=== PATIENT | male | born 1975 | race Caucasian/White ===

== ENCOUNTER 2018-09-16 18:48 | Emergency (ER) | payer SELFPAY ==
--- NOTE | 2018-09-16 18:56 | EDM.PDOC ---
ED HPI GENERAL MEDICAL PROBLEM - General Stated Complaint: THROWING UP Time Seen by Provider: 09/16/18 18:56 Source of Information: Reports: Patient History Limitations: Reports: No Limitations - History of Present Illness INITIAL COMMENTS - FREE TEXT/NARRATIVE: HISTORY AND PHYSICAL: History of present illness: Patient is a 43-year-old male who presents to the emergency room with complaints of nausea and vomiting x 3 since this afternoon. He states he had noticed dark colored emesis and was concerned it may have been blood. Prior did have some generalized abdominal pain which has now resolved. Patient denies any fever, chills, headache, change in vision, syncope or near syncope. Denies any chest pain, back pain, shortness of breath or cough. Denies any abdominal pain, diarrhea, constipation or dysuria. Has not noted any blood in urine or stool. He denies any recent alcohol use but is a daily smoker. Review of systems: As per history of present illness and below otherwise all systems reviewed and negative. Past medical history: As per history of present illness and as reviewed below otherwise noncontributory. Surgical history: As per history of present illness and as reviewed below otherwise noncontributory. Social history: See social history for further information Family history: As per history of present illness and as reviewed below otherwise noncontributory. Physical exam: General: Well-developed and well-nourished 43-year-old male. Alert and oriented. Nontoxic appearing and in no acute distress. HEENT: Atraumatic, normocephalic, pupils equal and reactive bilaterally, negative for conjunctival pallor or scleral icterus, mucous membranes moist, TMs normal bilaterally, throat clear, neck supple, nontender, trachea midline. No drooling or trismus noted. No meningeal signs. No hot potato voice noted. Lungs: Clear to auscultation, breath sounds equal bilaterally, chest nontender. Heart: S1S2, regular rate and rhythm without overt murmur Abdomen: Soft, nondistended, nontender. Negative for masses or hepatosplenomegaly. Negative for costovertebral tenderness. Pelvis: Stable nontender. Genitourinary: Deferred. Rectal: Deferred. Skin: Intact, warm, dry. No lesions or rashes noted. Extremities: Atraumatic, moves all extremities per self without difficulty or deficits, negative for cords or calf pain. Neurovascular unremarkable. Neuro: Awake, alert, oriented. Cranial nerves II through XII unremarkable. Cerebellum unremarkable. Motor and sensory unremarkable throughout. Exam nonfocal. Notes: Physical examination is within normal limits. He is agreeable to IV fluids and lab work. CT shows a 3 mm nonobstructing calculus lower pole left kidney. No obstructive uropathy and normal appendix. Otherwise CT is unremarkable. I did contact Dr Santos , general surgeon, about this case. We'll place him on Carafate and omeprazole. He states he'll see the patient on Wednesday. I did discuss this conversation along with diagnostics with the patient. Supportive care measures were reviewed and discussed. Voices understanding and is agreeable to plan of care. Denies any further questions or concerns at this time. Diagnostics: CBC, CMP, UA and abdominal lipase Therapeutics: IV fluid, Zofran Prescription: Omeprozole Protonix Impression: Gastritis Plan: 1. Prescription is available at [place] pharmacy. Please start these medications right away. 2. Avoid any irritating products such as tobacco or alcohol as we discussed. 3. Call Dr. Santos's office Wednesday morning at 0800am to set up an appointment for that day. Informed the nurse that you had spoke with Dr. Licona will urine the emergency room and he will see you on Wednesday. 4. Return to the ED as needed and as discussed. Definitive disposition and diagnosis as appropriate pending reevaluation and review of above. - Related Data Allergies Allergy/AdvReac Type Severity Reaction Status Date / Time No Known Allergies Allergy Verified 09/16/18 19:07 Home Meds: Home Meds Omeprazole 20 mg PO BEDTIME 14 Days #14 cap.sr 09/16/18 [Rx] Sucralfate [Carafate] 1 gm PO QIDACANDBED #20 cup 09/16/18 [Rx] ED ROS GENERAL - Review of Systems Review Of Systems: ROS reveals no pertinent complaints other than HPI. ED EXAM, GI/ABD - Physical Exam Exam: See Below (See dictation) Course - Vital Signs Last Recorded V/S: Last Vital Signs Temp 98.5 F 09/16/18 19:07 Pulse 56 L 09/16/18 20:21 Resp 17 09/16/18 20:21 BP 102/56 L 09/16/18 20:21 Pulse Ox 98 09/16/18 20:21 - Orders/Labs/Meds Orders: Active Orders 24 hr Category Date Time Status EKG Documentation Completion [RC] STAT Care 09/16/18 19:09 Active Labs: Laboratory Tests 09/16/18 09/16/18 09/16/18 Range/Units 19:17 19:17 19:25 WBC 17.08 H (4.0-11.0) K/uL RBC 4.68 (4.50-5.90) M/uL Hgb 15.2 (13.0-17.0) g/dL Hct 43.7 (38.0-50.0) % MCV 93.4 (80.0-98.0) fL MCH 32.5 H (27.0-32.0) pg MCHC 34.8 (31.0-37.0) g/dL RDW Std Deviation 45.2 (28.0-62.0) fl RDW Coeff of Екатерина 13 (11.0-15.0) % Plt Count 287 (150-400) K/uL MPV 9.20 (7.40-12.00) fL Neut % (Auto) 75.0 (48.0-80.0) % Lymph % (Auto) 18.4 (16.0-40.0) % [place] % (Auto) 5.4 (0.0-15.0) % Eos % (Auto) 1.0 (0.0-7.0) % Baso % (Auto) 0.2 (0.0-1.5) % Neut # (Auto) 12.8 H (1.4-5.7) K/uL Lymph # (Auto) 3.1 H (0.6-2.4) K/uL [place] # (Auto) 0.9 H (0.0-0.8) K/uL Eos # (Auto) 0.2 (0.0-0.7) K/uL Baso # (Auto) 0.0 (0.0-0.1) K/uL Nucleated RBC % 0.0 /100WBC Nucleated RBCs # 0 K/uL Sodium 140 (136-148) mmol/L Potassium 4.2 (3.5-5.1) mmol/L Chloride 103 (98-107) mmol/L Carbon Dioxide 25.6 (21.0-32.0) mmol/L BUN 26 H (7.0-18.0) mg/dL Creatinine 1.1 (0.8-1.3) mg/dL Est Cr Clr Drug Dosing 87.48 mL/min Estimated GFR (MDRD) > 60.0 ml/min Glucose 97 (74-106) mg/dL Calcium 8.9 (8.5-10.1) mg/dL Total Bilirubin 0.6 (0.2-1.0) mg/dL AST 24 (15-37) IU/L ALT 24 (14-63) IU/L Alkaline Phosphatase 97 (46-116) U/L Total Protein 6.8 (6.4-8.2) g/dL Albumin 3.7 (3.4-5.0) g/dL Globulin 3.1 (2.6-4.0) g/dL Albumin/Globulin Ratio 1.2 (0.9-1.6) Lipase 148 (73-393) U/L Urine Color YELLOW Urine Appearance CLEAR Urine pH 6.0 (5.0-8.0) Ur Specific [place] 1.025 (1.001-1.035) Urine Protein NEGATIVE (NEGATIVE) mg/dL Urine Glucose (UA) NEGATIVE (NEGATIVE) mg/dL Urine Ketones NEGATIVE (NEGATIVE) mg/dL Urine Occult Blood NEGATIVE (NEGATIVE) Urine Nitrite NEGATIVE (NEGATIVE) Urine Bilirubin NEGATIVE (NEGATIVE) Urine Urobilinogen 0.2 (<2.0) EU/dL Ur Leukocyte Esterase NEGATIVE (NEGATIVE) Meds: Medications Discontinued Medications Generic Name Dose Route Start Last Admin Trade Name Freq PRN Reason Stop Dose Admin Famotidine 20 mg 09/16/18 19:33 09/16/18 19:40 Pepcid IVPUSH 09/16/18 19:34 20 mg ONETIME ONE Administration Sodium Chloride 1,000 mls @ 999 mls/hr 09/16/18 19:09 09/16/18 19:23 Normal Saline IV 09/16/18 20:09 999 mls/hr STAT ONE Administration Iopamidol 100 ml 09/16/18 20:01 09/16/18 20:02 Isovue Multipack-370 (76%) IVPUSH 09/16/18 20:02 100 ml ONETIME STA Administration Ondansetron HCl 4 mg 09/16/18 19:09 09/16/18 19:23 Zofran IVPUSH 09/16/18 19:10 4 mg ONETIME ONE Administration Departure - Departure Time of Disposition: 20:50 Disposition: Home, Self-Care 01 Clinical Impression: Gastritis Qualifiers: Gastritis type: unspecified gastritis Chronicity: acute Gastritis bleeding: presence of bleeding unspecified Qualified Code(s): K29.00 - Acute gastritis without bleeding - Discharge Information Prescriptions: Omeprazole 20 mg PO BEDTIME 14 Days #14 cap.sr Sucralfate [Carafate] 1 gm PO QIDACANDBED #20 cup Instructions: Gastritis, Adult, [id number] Referrals: PCP,None [Primary Care Provider] - Additional Instructions: The following information is given to patients seen in the emergency department who are being discharged to home. This information is to outline your options for follow-up care. We provide all patients seen in our emergency department with a follow-up referral. The need for follow-up, as well as the timing and circumstances, are variable depending upon the specifics of your emergency department visit. If you don't have a primary care physician on staff, we will provide you with a referral. We always advise you to contact your personal physician following an emergency department visit to inform them of the circumstance of the visit and for follow-up with them and/or the need for any referrals to a consulting specialist. The emergency department will also refer you to a specialist when appropriate. This referral assures that you have the opportunity for follow-up care with a specialist. All of these measure are taken in an effort to provide you with optimal care, which includes your follow-up. Under all circumstances we always encourage you to contact your private physician who remains a resource for coordinating your care. When calling for follow-up care, please make the office aware that this follow-up is from your recent emergency room visit. If for any reason you are refused follow-up, please contact the [facility] Emergency Department at and asked to speak to the emergency department charge nurse. [facility] General Surgery : DR SANTOS [facility] [address] [place] [address], [address] [place] [address] 1. Prescription is available at [place] pharmacy. Please start these medications right away. 2. Avoid any irritating products such as tobacco or alcohol as we discussed. 3. Call Dr. Santos's office Wednesday at 0800am to set up an appointment for that day. Informed the nurse that you had spoke with Dr. Santos will urine the emergency room and he will see you on Wednesday. 4. Return to the ED as needed and as discussed. - My Orders Last 24 Hours: My Active Orders 09/16/18 19:09 EKG Documentation Completion [RC] STAT - Assessment/Plan Last 24 Hours: My Active Orders 09/16/18 19:09 EKG Documentation Completion [RC] STAT
[2018-09-16] MEDS ORDERED: Ondansetron 4 MG/2 ML SDV IVPUSH ONE (19:09)
[2018-09-16] MEDS ORDERED: Sodium Chloride 0.9% 1,000 ML IV ONE (19:09)
[2018-09-16] MEDS ORDERED: Famotidine 20 MG/2 ML SDV IVPUSH ONE (19:33)
[2018-09-16 19:48] LABS: CHLORIDE,CL 103 mmol/L (98-107); SODIUM,NA 140 mmol/L (136-148)
[2018-09-16] MEDS ORDERED: Iopamidol 755 MG/ML 500 ML Multipack Bottle IVPUSH STA (20:01)
--- NOTE | 2018-09-16 20:32 | CT ---
INDICATION: Abdominal pain. COMPARISON: None. TECHNIQUE: CT abdomen and pelvis with intravenous contrast; coronal and sagittal reformats. FINDINGS: No abnormal intra pulmonary nodular densities through the lung bases. No evidence of pleural effusion. Normal size cardiac silhouette without any evidence of pericardial effusion. No focal hepatic or splenic pathology. No pancreatic pathology. Gallbladder is unremarkable. No adrenal pathology. A 3 mm nonobstructing calculus upper pole calyx left kidney slice 37 series 201. No obstructive uropathy or perinephric pathology. No retroperitoneal lymphadenopathy. No evidence of abdominal or pelvic ascites. Normal appendix. CT study of the pelvis is unremarkable. No pneumoperitoneum or intestinal obstruction. Splenic vein, superior mesenteric vein and the portal vein are unremarkable. IMPRESSION: 1. A 3 mm nonobstructing calculus lower pole calyx left kidney. 2. No obstructive uropathy or perinephric pathology. 3. Normal appendix. 4. Negative CT abdomen and pelvis with intravenous contrast otherwise. Please note that all CT scans at this facility use dose modulation, iterative reconstruction, and/or weight-based dosing when appropriate to reduce radiation dose to as low as reasonably achievable. Dictated by Nunu Trevino MD @ Sep 16 2018 8:27PM Signed by Dr. Nunu Trevino @ Sep 16 2018 8:31PM
== END 2018-09-16 21:22 | disposition home or self-care (01) ==
LOC: MW.ED 18:48
DX: K29.00 Acute gastritis without bleeding (principal); Z79.899 Other long term (current) drug therapy
CPT/HCPCS: 36415; 74177; 80053; 81003; 83690; 85025; 93005; 96361; 96374; 96375; 99284; J2405; J3490; J7040; Q9967

== ENCOUNTER 2018-10-12 08:45 | Day surgery (SDC) | payer BC ==
[~2018-10-12 08:45] MED LIST: Lactated Ringers 1,000 ML IV SCH; Midazolam 1 MG/ML 2 ML SDV ONE; Propofol 200 MG/20 ML SDV ONE
--- NOTE | 2018-10-12 10:03 | PCM.PREANE ---
Preanesthetic Assessment - Anesthesia/Transfusion/Family Hx Anesthesia History: Prior Anesthesia Without Reaction Family History of Anesthesia Reaction: No Transfusion History: No Prior Transfusion(s) Intubation History: Unknown - Review of Systems General: No Symptoms Pulmonary: No Symptoms Cardiovascular: No Symptoms Gastrointestinal: Abdominal Pain, Other (coffee ground emesis) Neurological: No Symptoms Other: Reports: None - Physical Assessment Height: 5 ft 9 in Weight: 73.482 kg ASA Class: 2 Mental Status: Alert & Oriented x3 Airway Class: Mallampati = 2 Dentition: Reports: Normal Dentition, Missing Tooth/Teeth (multiple teeth) Thyro-Mental Finger Breadths: 3 Mouth Opening Finger Breadths: 3 ROM/Head Extension: Full Lungs: Clear to Auscultation, Normal Respiratory Effort Cardiovascular: Regular Rate, Regular Rhythm - Allergies Allergies/Adverse Reactions: Allergies Allergy/AdvReac Type Severity Reaction Status Date / Time No Known Allergies Allergy Verified 10/03/18 08:13 - Blood Blood Available: No - Anesthesia Plan Pre-Op Medication Ordered: None - Acknowledgements Anesthesia Type Planned: MAC Pt an Appropriate Candidate for the Planned Anesthesia: Yes Alternatives and Risks of Anesthesia Discussed w Pt/Guardian: Yes Pt/Guardian Understands and Agrees with Anesthesia Plan: Yes PreAnesthesia Questionnaire HEENT History: Reports: None Cardiovascular History: Reports: None Respiratory History: Reports: Pneumothorax Other Respiratory History: hx spontaneous pneumothorax over 20 years ago, states had his lung "scrapped" Gastrointestinal History: Reports: Other (See Below) Other Gastrointestinal History: recent coffee ground emesis, possible GI bleed Genitourinary History: Reports: None Musculoskeletal History: Reports: Fracture Other Musculoskeletal History: fx wrist as a child Neurological History: Reports: None Psychiatric History: Reports: None Endocrine/Metabolic History: Reports: None Hematologic History: Reports: None Immunologic History: Reports: None Oncologic (Cancer) History: Reports: None Dermatologic History: Reports: None - Infectious Disease History Infectious Disease History: Reports: Chicken Pox - Past Surgical History Head Surgeries/Procedures: Reports: None HEENT Surgical History: Reports: None Cardiovascular Surgical History: Reports: None Respiratory Surgical History: Reports: None GI Surgical History: Reports: None Male Surgical History: Reports: None Endocrine Surgical History: Reports: None Neurological Surgical History: Reports: None Musculoskeletal Surgical History: Reports: None Oncologic Surgical History: Reports: None - SUBSTANCE USE Smoking Status *Q: Current Every Day Smoker (1 ppd) Tobacco Use Within Last Twelve Months: Cigarettes - HOME MEDS Home Medications: Home Meds . [No Known Home Meds] 10/03/18 [History] - CURRENT (IN HOUSE) MEDS Current Meds: Current Medications Lactated Ringer's (Ringers, Lactated) 1,000 mls @ 125 mls/hr IV ASDIRECTED REGINALD Lactated Ringer's (Ringers, Lactated) 1,000 mls @ 125 mls/hr IV ASDIRECTED REGINALD Discontinued Medications Midazolam HCl (Versed 1 Mg/Ml) Confirm Administered Dose 2 mg .ROUTE .STK-MED ONE Stop: 10/12/18 07:26 Propofol (Diprivan 20 Ml) Confirm Administered Dose 400 mg .ROUTE .STK-MED ONE Stop: 10/12/18 07:26
--- NOTE | 2018-10-12 11:08 | PCM.OPNOTE ---
- General Post-Op/Procedure Note Date of Surgery/Procedure: 10/12/18 Operative Procedure(s): 1) colonoscopy w bx and,. 2) gastroscopy w bx Findings: see dict [id number] Pre Op Diagnosis: black tarry stool and coffee ground emisis Post-Op Diagnosis: Same Anesthesia Technique: Moderate Sedation Primary Surgeon: Manuel Santos Pathology: egd bx colon bx Complications: None Condition: Good
--- NOTE | 2018-10-12 11:36 | PCM48HPAN ---
Post Anesthesia Note - EVALUATION WITHIN 48HRS OF ANESTHETIC Vital Signs in Normal Range: Yes Patient Participated in Evaluation: Yes Respiratory Function Stable: Yes Airway Patent: Yes Cardiovascular Function Stable: Yes Hydration Status Stable: Yes Pain Control Satisfactory: Yes Nausea and Vomiting Control Satisfactory: Yes Mental Status Recovered: Yes Resp Rate: 18 - COMMENTS/OBSERVATIONS Free Text/Narrative:: no anesthesia problems
--- NOTE | 2018-10-12 14:26 | OR ---
SURGEON: Manuel Santos MD DATE OF PROCEDURE: 10/12/2018 PREOPERATIVE DIAGNOSES: Black tarry stool and coffee-grounds emesis. POSTOPERATIVE DIAGNOSES: Esophagogastroduodenoscopy diagnoses are gastritis and almost Valdez esophagitis and duodenitis. Colonoscopy diagnoses are proctitis and internal hemorrhoid. PROCEDURES PERFORMED: Colonoscopy with biopsy and esophagogastroduodenoscopy with biopsy. DESCRIPTION OF PROCEDURE: The patient was taken to the endoscopy room. A time out was called, patient identified, and procedure identified. Diprivan was then administrated. Patient went from awake to sleep, hearing doctor talking or door closing is normal. Perineum inspection and digital examination were then performed. A well- lubricated colonoscope was gently inserted through the rectum, advanced past the rectosigmoid junction, the descending colon, splenic flexure, transverse colon, hepatic flexure, ascending colon, arrived to the cecum. Cecum was identified as dictated in the finding. Then the scope was carefully withdrawn while attention was paid to the mucosal surface for any abnormality. Air will be sucked out during the scope withdrawal. At the rectum, retroflexed to examine any rectal diseases, fistula or hemorrhoids. During mucosal examination, abnormality or polyp was noted; picture taken and biopsy performed. Patient tolerated procedure well. There were no intraoperative complications, and Dr. Sanots was present throughout the whole procedure. EGD: The patient was taken to the endoscopy room, and with the WELT SLASHER, Diprivan was administered. A well-lubricated EGD scope was gently inserted through the oropharynx, down the esophagus, passing through the gastroesophageal junction, into the stomach. The mucosa was examined upon the passage. Any etiology will be noted. Once in the stomach, we continued to advance to the distal antrum, passed through the pylorus into the second portion of the duodenum. Again, the mucosa was examined for any abnormality and etiology. The scope was then retrieved back to the stomach and then retroflexed to look at the fundus of the stomach. If a biopsy was indicated, we will biopsy the antrum, body, and gastroesophageal junction. The air will be sucked out while the scope is retrieved to reduce the patient's discomfort. The patient tolerated the procedure well. There were no intraoperative complications. Dr. Santos was present through the whole procedure. Prior to surgery, a time-out had been called, the patient identified, procedure identified and antibiotic administered. FINDINGS: EGD findings: 1. The patient is easily sedated with WELT SLASHER and Diprivan, the patient is soundly snoring. 2. Oropharynx and proximal esophagus are free of disease, stricture, inflammation. Distal esophagus at GE junction at 40 shows significant skip lesions with salmon-colored change, resemble Valdez esophagitis. Stomach rugae are normal in appearance and there is a little bit bile within. No food particle, no ulcer. There is some old blood over there, it is not like blood clot, but there is some old blood, like petechiae. Antrum is a little bit inflamed. Duodenal bulb is inflamed, but there is no ulcer, no blood, and second portion of duodenum is grossly normal. Retrieved back to the stomach and retroflexed to look at the fundus of stomach, there is no hiatal hernia. Biopsy done at antrum 2 times, and hopefully kept some old blood and inflamed situation and also biopsy done at body and biopsy done at GE junction at 40, two of them, again consistent with Valdez esophagitis. There is some portion in the stomach, looked like a healed ulcer. During the whole study, there is no food particle or bile observed and sucked out the gas while scope pulling out. Colonoscopy findings: 1. The patient is easily sedated with WELT SLASHER and Diprivan, the patient is soundly snoring. 2. Bowel prep is average to above average, very little liquid stool, no semi- formed stool. 3. The patient's colon is rather straightforward. Cecum indicated by ileocecal fold, one-to-one indentation, and appendiceal orifice. Colon is rather short, finished 90 cm. Mucosa examined upon scope pulling out, and the patient does not have diverticulosis, polyp, mass, growth, and inflammation. However, there was some hyperemia at distance 20 when scope pulling out, it was biopsied. Hyperemic, it is not inflammation. No ulcer, no bleeding, and the patient has moderate internal hemorrhoid. In the anal opening, there are a couple of areas that look like it is ulcerating. The patient may be concerned for IBS. This can also be slightly beginning of possible diverticulosis, very very mild, very early. So biopsy done at hyperemic area at 20 cm when scope came out. Depending on the clinical presentation and the pathology, the patient probably would benefit from repeat colonoscopy in 5 to 10 years, and the patient should repeat the EGD in about 6 months. IGNACIA CASTRO /[id number]
== END 2018-10-12 11:50 | disposition home or self-care (01) ==
LOC: MW.SDS 08:45
PROVIDERS: ATTEND Surgery
DX: K62.89 Other specified diseases of anus and rectum (principal); K64.8 Other hemorrhoids; K29.51 Unspecified chronic gastritis with bleeding; K92.0 Hematemesis; K63.5 Polyp of colon; K59.8 Other specified functional intestinal disorders; R10.9 Unspecified abdominal pain; F17.210 Nicotine dependence, cigarettes, uncomplicated
CPT/HCPCS: 43239; 45380; J2250; J2704; J7120; 88305; 88312